=== PATIENT | male | born 1945 | race Caucasian/White ===

== ENCOUNTER 2016-08-10 08:30 | Inpatient (IN) | payer MEDICARE, OTHER ==
[~2016-08-10] VITALS: Ht 162.6 cm; Wt 132.0 kg
--- NOTE | ~2016-08-10 | OR ---
PATIENT'S NAME: BECK CROUCH [facility] AGE: 70 Y [address] ROOM: [place] [address] [place] [facility] [place]: 08/10/2016 OR/Procedure Report DISCHARGE DATE: FAMILY PHYSICIAN: Beck Akins MD ATTENDING PHYSICIAN: Beck Akins SURGEON: Roland Brush MD SPINNERET CLEANER: DATE OF PROCEDURE: 08/10/2016 PREOPERATIVE DIAGNOSES: 1. Gross hematuria. 2. Urinary retention secondary to clots. 3. Massive underlying benign prostatic hypertrophy. 4. Coronary artery disease and on chronic Xarelto therapy. POSTOPERATIVE DIAGNOSES: 1. Gross hematuria. 2. Urinary retention secondary to clots. 3. Massive underlying benign prostatic hypertrophy. 4. Coronary artery disease and on chronic Xarelto therapy. PROCEDURE: Cystoscopy and clot evacuation. ANESTHESIA: Sedation. INDICATION: This a 70-year-old gentleman, who had presented to the emergency room this morning. He had gross hematuria. Fortunately, he did not have any significant associated symptoms. He was getting his urine passed. We know that he has underlying massive BPH as well as coronary artery disease for which he is on chronic Xarelto therapy. He has not had any evaluation for some time, so we did go ahead and check a CT scan to evaluate the upper tracts. Our plan was to manage him as an outpatient. Unfortunately, during or after his CT scan, he felt like he could not void. He was therefore admitted. Our plan was to proceed with some CBI. Nurses were unable to pass the catheter. Relevant history is that he underwent a 41 g resection a few years ago. That tissue was benign. He did well from a voiding standpoint. Regardless, we knew he had a significant residual tissue, but he did not like taking the 5- alpha-reductase inhibitor (finasteride). He stopped his 1-exxhy-babtefrmq inhibitor . He continued on his Xarelto. He did fine for a period of time, and as we might expect, he eventually developed bleeding again. I have reviewed his CT scan. I do not see anything obvious in his upper tracts. He does have BPH and a mass in his bladder. I suspect the mass is PATIENT'S NAME: BECK CROUCH [facility] AGE: 70 Y [address] ROOM: [place] [id number] [place] [facility] [place]: 08/10/2016 OR/Procedure Report DISCHARGE DATE: FAMILY PHYSICIAN: Beck Akins MD ATTENDING PHYSICIAN: Beck Akins. With the clot and considering the fact that the nurses can get a catheter in and he has had the prior intervention, recommended cystoscopy with clot evacuation and catheter placement. DESCRIPTION OF PROCEDURE: Having obtained informed consent, the patient was taken to the cystoscopy suite. He was prepped and draped sterilely and in lithotomy position. IV sedation was administered. A 21-St Helenian cystoscope was assembled and guided into the urethra. The course of the urethra was unremarkable back to prostatic urethra. He has significant residual tissue. He also has a false passage. I suspect that is why they can get the catheter in. With the benefit of visualization, I can go up over that and into the bladder. I then spent some time with the [employer] evacuator and evacuated the clot. We could now see the mucosa. We can see both orifices. We can see significant residual tissue. It is oozing from a number of places. With his Xarelto therapy, I did not try any cauterization. I suspect, if we get a 3-way catheter in and let his Xarelto dissipate, he should not require anything further. We will certainly get him back on his finasteride. Dr. Akins has already restarted that. With all clot evacuated and evaluation complete, I passed a whistle-tip catheter through the scope and into the bladder. Over that, I passed a 24- St Helenian Councill tip catheter. That gets us in good position. It irrigates nicely. The patient tolerated the procedure well. Blood loss was limited to the clot in his bladder. No specimens were sent. The patient returned to recovery area, awake, in stable condition. ROLAND BRUSH MD [facility]/modl /[id number] CC: Beck Akins MD d: 08/10/16 2254 t: 08/18/16 1448, OPERATIVE SUMMARY
--- NOTE | ~2016-08-10 | ER ---
PATIENT'S NAME: BECK CROUCH [facility] AGE: 71 Y [address] ROOM: [place] [address] LOCATION: [facility] [place] ADMIT DATE: 08/10/2016 ER/Outpatient Report DISCHARGE DATE: 08/12/2016 FAMILY PHYSICIAN: Beck Akins MD ATTENDING PHYSICIAN: Beck Akins Admission date and time are documented on the medical record. I saw the patient at 0850 hours. CHIEF COMPLAINT: Passing blood in clots per urinary tract. HISTORY OF PRESENT ILLNESS: This patient is a 71-year-old male who yesterday started to have hematuria. This morning, he started to have clots being passed along with a continued hematuria. The patient was having some hesitancy and dysuria. The patient has had some urinary obstruction in the past and hematuria. He has been seen by Urology in the past. The patient is overweight. No recent coughs, colds, flus, fever, chills, or sweats. No chest pain or shortness of breath. No abdominal pain, nausea, vomiting, or diarrhea. No headache, eyes, ears, nose, throat, neck, or spine pain. No lightheadedness, dizziness, syncope, or near syncope. No fall or trauma. Does have some degenerative osteoarthritis of his major joints. Does have a history of gout. No history of neuro changes, psych issues, or endocrine problems. HOME MEDICATIONS: See attached medication list. ALLERGIES: NONE. SOCIAL HISTORY: Nonsmoker, nondrinker. SIGNIFICANT PAST MEDICAL HISTORY: Hypertension, pulmonary hypertension, COPD, exogenous obesity, gout, and history of paroxysmal atrial fibrillation. OPERATIONS: Transurethral resection of the prostate, cystoscopy. REVIEW OF SYSTEMS: All systems reviewed by me are negative with the exception of those discussed in the history of present illness. PATIENT'S NAME: BECK CROUCH [facility] AGE: 71 Y [address] ROOM: [address] [address] LOCATION: [facility] [place] ADMIT DATE: 08/10/2016 ER/Outpatient Report DISCHARGE DATE: 08/12/2016 FAMILY PHYSICIAN: Beck Akins MD ATTENDING PHYSICIAN: Beck Akins PHYSICAL EXAMINATION: VITAL SIGNS: Temperature 97.9, tympanic, pulse 81, regular, respirations 30, blood pressure 125/71, and O2 sat on room air was 87% and was 92% to 93% on 2 L of oxygen per nasal cannula. HEAD: Normocephalic. EYES, EARS, NOSE, AND THROAT: Clear. NECK: Negative. LUNGS: Clear. HEART: Regular. ABDOMEN: Large obese abdomen. Soft, nontender. Good bowel tones. No organomegaly or abnormal mass palpable. GENITALIA: Intact. EXTREMITIES: No peripheral edema, cyanosis, or deformity. NEUROVASCULAR: Intact. SKIN: Clear. No skin eruptions or rash. IMAGING DATA: CT scan of the abdomen and pelvis showed possible clot in the bladder near the right ureteral orifice. There is prostatomegaly, chronic liver disease, no free fluid or air, no other abnormalities of solid organs. CT scan was read by Radiology, see dictated transcribed report. LABORATORY DATA: White count is 5100, 69 segs, 20 lymphs, 8 monos, 1 eo, 1 baso, hemoglobin 16.6, hematocrit 52.2, and platelet count was 153,000. PTT was 31, pro-time is 13.1 with an INR 1.24. Urine showed 0-2 epithelial cells, few bacteria, 1+ mucus, packed field rbcs, 2-5 wbcs, negative nitrites on dipstick. Chemistry was normal except for a slight low sodium 134, low chloride 93, elevated CO2 content of 34, elevated glucose 184, and GFR was greater than 60. Stool was occult negative. IMPRESSION: 1. Hematuria, etiology uncertain, the patient is passing blood in clots. 2. Hypertension. 3. Exogenous obesity. 4. Degenerative osteoarthritis with degenerative joint disease. PLAN: Discussed the patient with Dr. Akins. We will admit the patient for further evaluation. The patient will most likely need Urology consult with cystoscopy and further procedure if necessary. Saline lock was started and the patient admitted. Discussion ensued with the patient concerning my findings and recommendations, he understands. PATIENT'S NAME: MIKO BECK Barrett [facility] AGE: 71 Y [address] ROOM: [address] [address] LOCATION: [facility] [place] ADMIT DATE: 08/10/2016 ER/Outpatient Report DISCHARGE DATE: 08/12/2016 FAMILY PHYSICIAN: Beck Akins MD ATTENDING PHYSICIAN: Beck Akins MD LORRAINE LITTLE/hailey /[id number] d: 09/06/16 0030 t: 09/06/16 1811, OUTPATIENT REPORT
--- NOTE | ~2016-08-10 | DS ---
PATIENT'S NAME: BECK CROUCH [facility] AGE: 70 Y [address] ROOM: [id number] [place], [place] [address] [place] [facility] [place] DATE: 08/10/2016 Discharge Summary DISCHARGE DATE: 08/12/2016 FAMILY PHYSICIAN: Beck Akins MD ATTENDING PHYSICIAN: Beck Akins [facility] COURSE: Beck Crouch entered the hospital with hematuria and clots in his urine, somewhat decreased ability to void. On a CT scan, they are hopeful that there was identified blood clots in the bladder area. Dr. Marques had treated this patient before for urinary obstruction and was called to come and see the patient, and he felt like the best correction was a cystoscopy, which was scheduled later that day, and cystoscopy was done, and I assume that there was coagulation of the bladder bleeders and then two-way catheter had been inserted earlier, and the patient's bladder was actively irrigated. The patient was kept down for the next 12 to 18 hours, and then we allowed him to get up and move around when the urine appeared to be no longer and it began to lighten up, we decided that the patient could possibly go home, which is a problem because he lives by himself and no real good back up as far as family or friends go. The patient just prior to leaving the hospital "gulped a water and he felt it went in the wrong direction, so the nursing staff was concerned about whether or not he had an aspiration, so we kept him another 2 or 3 hours, monitored, gave him a breathing treatment, and finally decided that he was okay and that he could be dismissed, safe to go home. I instructed him to drink more than average amount of water, continue flushing his bladder out. We placed him on the same medications he has been on with the exception of Xarelto, and dismissed him home, and we will follow him frequently in the office for his ongoing other medical problems with anticoagulation and hypo/hypertension episodes . FINAL DIAGNOSES: Hematuria and clots from bleeding areas. MD BRET DUNCAN/hailey /[id number] d: 08/15/16 0257 t: 08/17/16 1027, DISCHARGE SUMMARY
--- NOTE | ~2016-08-10 | HP ---
PATIENT'S NAME: BECK CROUCH [facility] AGE: 70 Y [address] 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 Said he was in no pain, felt fine, but his urine had been kind of red through the early part of the day. I recommended to him that he drink lots of water and call me if there is any change. He called the next morning about 6:00 and said that he had a number of clots in his urine and finding it a little more difficult to go. We decided that he should go to emergency room where we can get some lab and x-rays early today, so he went to the emergency room and it is obvious that he is continuing to bleed from his urinary tract from some particular nidus. He had a CT scan and they thought they could identify clots, reasonable size inside his bladder. Contacted a famous urologist, Dr. Roland Marques who agreed that the patient should be in and have possible cysto. So, the patient was admitted. 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 He has some issues with hypertension and hypotension and edema of his lower extremities, which caused a great deal of juggling with his diuretics where he has been trying to keep his blood pressure high enough to where he can navigate. He has had some problems with some cellulitis episodes of his lower extremities due to the edema. He has some issues with hyperuricemia and received medication for that. 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 We see Duane almost weekly in the office for his legs. His support group is not the best. His brother is also quite ill with, I believe, some renal failure, as the gyiwas-py-pgt, Silvia who has been on our nursing staff for years, tried as best she can to keep him headed in the right direction. Medications are as per the chart, and he takes Bystolic, he is on Colcrys, allopurinol, Lasix, and there may be some other things that are present on the chart. His general mobility is fair despite his size. His nutrition is little to the excess. He has had an episode of urinary obstruction before in the past and I think Dr. Marques has helped him with that maybe 3 or 4 years ago. PHYSICAL EXAMINATION: GENERAL: Beck Crouch is a very large fella being as wide as he is tall, rather dark complexed, short hair, cropped short. HEENT AND NECK: Eyes: Extraocular muscles intact. Pupils equally round and reactive to light. Nose: A little nasal congestion. Posterior pharynx is PATIENT'S NAME: BECK CROUCH [facility] AGE: 70 Y [address] ROOM: [place] [address] [place] [facility] [place]: 08/10/2016 History & Physical DISCHARGE DATE: FAMILY PHYSICIAN: Beck Akins MD ATTENDING PHYSICIAN: Beck Akins clear. Carotids equally palpable. Heart sounds transmitted. Ears hairy and has some wax. The patient appears euthyroid, although his neck is extremely bulky. CHEST AND BACK: Lungs are clear to auscultation with the exception of maybe some fine rales at the bases. HEART: Sounds are very difficult to hear, regular, irregular, very distant. ABDOMEN: Huge. Difficult to get any kind of feel for an organomegaly. Bowel sounds are present. No generalized tenderness. PELVIC AND RECTAL: Not performed. EXTREMITIES: As noted above, the patient has a fusiform swelling of his legs below his knees. Some 1-1/2 to 1 pitting edema at this time. At this time, he has no open sores on his lower legs. He moves all extremities well. Mobility is a little wide based, relatively slow. IMPRESSION: Hematuria with clots, suspect bleeding from the bladder, also some congestive heart failure, edema of the lower legs, hyperuricemia, and morbid obesity. PLAN: Is to admit him, irrigate his bladder, and more than likely Dr. Marques will do a cysto exam later today. MD BRET DUNCAN/modl /[id number] D: [id number] T: [id number] HISTORY & PHYSICAL
[2016-08-10 09:31] LABS: BASOPHIL % 0.6 %; EOSINOPHIL # 0.1 K/uL (0.0-0.5); EOSINOPHIL % 1.4 %; HEMATOCRIT 52.2 % (37.0-53.0); HEMOGLOBIN 16.6 g/dL (11.0-16.0); IMMATURE GRANULOCYTE % 0.6 %; LYMPHOCYTE % 20.2 %; MCH 30.3 pg (27.0-34.0); MCHC 31.8 gm/dL (32.0-36.5); MCV 95.3 fl (83.0-98.0); MONOCYTE # 0.4 K/uL (0.0-1.0); NEUTROPHIL # (ANC) 3.6 K/uL (1.4-9.0); NEUTROPHIL % 69.2 %; NRBC % 0 /100WBC (0-0.00); PLATELET COUNT 153 K/uL (150-450); RBC 5.48 M/uL (3.50-5.50); RDW-CV 13.9 % (11.9-14.6); WBC 5.1 K/uL (4.0-11.0)
[2016-08-10 09:38] LABS: INR - (THERAPEUTIC) 1.24 (0.92-1.07); PROTIME 13.1 SECONDS (9.8-11.4); PTT 31 SECONDS (25-32)
[2016-08-10 09:44] LABS: BILIRUBIN URINE NEGATIVE (NEGATIVE); BLOOD URINE 250 /UL (NEGATIVE); GLUCOSE URINE NEGATIVE (NEGATIVE); KETONE URINE NEGATIVE (NEGATIVE); LEUKOCYTES URINE 25 /UL (NEGATIVE); NITRITE URINE NEGATIVE (NEGATIVE); PROTEIN URINE 100 mg/dL (NEGATIVE); UROBILINOGEN URINE NORMAL (NORMAL)
[2016-08-10 09:45] LABS: COLOR URINE RED (YELLOW); TURBIDITY URINE 4+ (CLEAR)
[2016-08-10 09:51] LABS: ALBUMIN 3.7 gm/dL (3.5-5.0); ALK PHOS 126 IU/L (33-138); ALT 25 IU/L (12-78); ANION GAP 11.1 (10.0-19.0); AST 28 IU/L (10-40); BLOOD UREA NITROGEN 16 mg/dL (6-24); CALCIUM 9.2 mg/dL (8.5-10.5); CHLORIDE 93 mMol/L (96-110); CO2 34 mMol/L (22-32); ESTIMATED GFR (MDRD EQUATION) > 60; POTASSIUM 4.1 mMol/L (3.7-5.1); SODIUM 134 mMol/L (135-145); TOTAL BILIRUBIN 1.3 mg/dL (0.0-1.5); TOTAL PROTEIN 7.8 g/dL (6.0-8.4)
[2016-08-10 09:59] LABS: BACTERIA URINE FEW (NEGATIVE); EPITHELIAL URINE 0-2 #/HPF (NEGATIVE); MUCUS URINE 1+ (NEGATIVE); RBC URINE PACKED FIELD #/HPF (NEGATIVE)
[2016-08-10] MEDS ORDERED: XARELTO20 MG PO (14:40)
[2016-08-10] MEDS ORDERED: BYSTOLIC5 MG PO (14:41)
[2016-08-10] MEDS ORDERED: COLCRYS0.6 MG PO (14:41)
[2016-08-10] MEDS ORDERED: ZYLOPRIM300 MG PO (14:42)
[2016-08-10] MEDS ORDERED: LASIX40 MG PO (14:42)
[2016-08-10] MEDS ORDERED: FISH OIL 1,0001 EAC3 PO (14:42)
[2016-08-10] MEDS ORDERED: OCEAN NASAL) (A44 ML NOSE (14:43)
--- NOTE | 2016-08-10 15:11 | NUR ---
Pt is 70 y/o male admit for hematuria for NILA Akins. to consult. Pt alert and oriented x3. Resides at home by himself. He states he started having hematuria yesterday late morning, almost noon. Pt voids small amt guerra colored urine. Nursing staff unable to place roe catheter. Pt to go down for cysto and placement of roe. Has hx of htn,hypercholest,sleep apnea-wears O2 at HS,pneumonia,bronchitis,renal calculi,hematuria,anxiety,constipation. Has poor vision in right eye. Takes Xarelto for afib, last dose was yesterday. Has allergies to NSAIDS,Emycin,niacin,and ethyl alcohol,and adhesives(bandaids).
--- NOTE | 2016-08-11 02:08 | NUR ---
SIGNIFICANT EVENT: Patient alert & oriented. VSS on RA. Full code. Post op day 1 - cystoscopy and roe placement. CBI running Mod to Fast rate, several clots - varies between red and occasional pink. ACHS accuchecks with Mild SS insulin - patient states he is not diabetic and doesn't understand why this is occurring, encouraged him to speak with Dr Akins when he visits again. HS BG 148 so no coverage. Regular diet, advance as reece - had mashed potatoes, gravy and roast beef for supper - ate about 50% in addition to 2 jellos, 1 pudding. Tolerating well. PIV to L)FA is SL. Pleasant and cooperative with cares.
--- NOTE | 2016-08-11 14:43 | NUR ---
Patient is alert and oriented, VSS, on 2-3L O2. Regular diet. ACHS accucheck but is not diabetic, Dr wants to monitor. 1 assist. CBI has been clamped with pink to yellow urine. L) hand IV is saline locked. Has been up to the chair most of the day. Possibly home tomorrow.
--- NOTE | 2016-08-11 15:18 | NUR ---
Met with patient at bedside today velvet[place] 1130. Introduced myself and explained the role of the CM department. Patient states he lives alone. He states he has a brother that lives close by, but he has dialysis so he is not able to help him. He states he called his sister Bri, who lives in [place] and was going to ask her if her could come and stay with him for a few days, but she did not answer her phone. He is planning on calling her this evening to discuss this with her. He states his neighbor comes over every day and checks on him. 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 Patient states he has always been able to care for himself and thinks he will be able to do the same at discharge. Will follow up with him tomorrow to see if he spoke to his sister. Will continue to follow and offer supports as needed.
--- NOTE | 2016-08-12 04:40 | NUR ---
Significant Event: Patient is alert and oriented x 3. VSS on 3L of O2 per nasal cannula. Up with 1 assist. Galeano intact. 1000 mls of light pink urine out. Left hand IV, saline locked. ACHS accuchecks. Heath given last at 2201 for headache. PRN Milk of mag given per patient request. BM x 1. Patient is cooperative with cares. Follow up: Possible dismissal to home today.
[2016-08-12] MEDS ORDERED: PROSCAR5 MG PO (08:41)
[2016-08-12 08:55] LABS: HEMATOCRIT 50.5 % (37.0-53.0); HEMOGLOBIN 15.6 g/dL (11.0-16.0)
--- NOTE | 2016-08-12 16:29 | NUR ---
Significant Event: A/O X 3. makes needs known, is cooperative with cares, good at asking questions. Galeano removed per MD order at 11:00, voids well, has a couple of incontinent episodes but that was primarily due to missing the urinal. H&H drawn this AM, accuchecks stable with no insulin needed. At 1200 tech states patient was taking a drink of water, took a huge gulp and it went down the wrong way-lots of coughing. VSS except O2 sat 88% on RA, expiratory wheeze to l) anterior lobe and r) posterior lobe, rub to r) posterior upper lobe also. Dr. Akins notified-chest xray and breathing treatment completed. Gets dyspnic with activity, Ambulates in soto with 1 assist, no device, upon returning to room O2 sat 83% on RA, applied O2 at 3 L and rebounds to 93%. Call placed to Dr. Akins aroung 1615 with report of breathing, urination. Plan to discharge home this afternoon. Follow up: discharge
== END 2016-08-12 17:23 | disposition disaster alternative care site (69) | DRG 654 ==
LOC: GMED 08:30 → GMSU 12:46
PROVIDERS: Emergency Medicine; ADMIT Family Medicine
PROC: 0TCB8ZZ Extirpation of Matter from Bladder, Via Natural or Artificial Opening Endoscopic (ICD-10-PCS; principal; 2016-08-10)
PROC: 0T7B8DZ Dilation of Bladder with Intraluminal Device, Via Natural or Artificial Opening Endoscopic (ICD-10-PCS; principal; 2016-08-10)
DX: R31.0 Gross hematuria (principal); Z68.42 Body mass index [BMI] 45.0-49.9, adult; I11.0 Hypertensive heart disease with heart failure; I50.9 Heart failure, unspecified; N40.1 Benign prostatic hyperplasia with lower urinary tract symptoms; R33.8 Other retention of urine; I25.10 Atherosclerotic heart disease of native coronary artery without angina pectoris; E66.01 Morbid (severe) obesity due to excess calories; Z79.01 Long term (current) use of anticoagulants; Z91.040 Latex allergy status
CPT/HCPCS: J1956; J3010; J7030